=== PATIENT | female | born 1985 | race Caucasian/White ===

== ENCOUNTER 2017-08-23 14:02 | Emergency (ER) | payer SELFPAY ==
[~2017-08-23] VITALS: Ht 160 cm; Wt 70.9 kg
[~2017-08-23 14:02] MED LIST: ASPI500T10 PO; HYDR50CA PO; NAPR220C2 PO; ZIPR60CA2 PO
[2017-08-23 14:05] VITALS: BP 103/66
[2017-08-23] MEDS ORDERED: DIPHENHYDRAMINE 25 MG CAPSULE ONE (14:58)
[2017-08-23] MEDS ORDERED: DIPHENHYDRAMINE 25 MG CAPSULE PO ONE (15:00)
[2017-08-23] MEDS ORDERED: KETOROLAC 30 MG/1 ML ONE ×2 (15:42→15:45)
[2017-08-23] MEDS ORDERED: KETOROLAC 30 MG/1 ML IM ONE (16:00)
== END 2017-08-23 16:16 | disposition home or self-care (01) ==
LOC: ED 16:00
DX: L24.9 Irritant contact dermatitis, unspecified cause (principal)
CPT/HCPCS: 96372; 99283; J1885; J7512; Q0163

== ENCOUNTER 2017-10-27 11:24 | Emergency (ER) | payer SELFPAY ==
[~2017-10-27] VITALS: Ht 157.5 cm; Wt 70.0 kg
[2017-10-27] MEDS ORDERED: SODIUM CHLORIDE FLUSH 10ML SYR IVF ONE (12:00)
[2017-10-27 12:08] LABS: BASOPHILS # (AUTO) 0.03 x10^3/uL (0-0.1); BASOPHILS % (AUTO) 0 % (0-1); EOSINOPHILS # (AUTO) 0.08 x10^3/uL (0-0.4); EOSINOPHILS % (AUTO) 1 % (1-7); LYMPHOCYTES # (AUTO) 1.13 x10^3/uL (1-3.4); LYMPHOCYTES % (AUTO) 15 % (22-44); MD NO; MEAN CORPUSCULAR HEMOGLOBIN 26.7 pg (27.0-34.8); MEAN CORPUSCULAR HGB CONC 33.3 g/dL (32.4-35.8); MEAN CORPUSCULAR VOLUME 80.1 fL (80-100); MEAN PLATELET VOLUME 7.9 fL (7.4-10.4); MONOCYTES # (AUTO) 0.41 x10^3/uL (0.2-0.8); MONOCYTES % (AUTO) 6 % (2-9); NEUTROPHILS # (AUTO) 5.86 x10^3/uL (1.8-6.8); NEUTROPHILS % (AUTO) 78 % (42-75); PLATELET COUNT 342 x10^3/uL (130-400); RED BLOOD COUNT 4.15 x10^6/uL (3.82-5.3); RED CELL DISTRIBUTION WIDTH 16.1 % (9.6-15.2)
[2017-10-27 12:19] LABS: ALBUMIN 4.2 g/dL (3.4-5.0); ANION GAP 10 mmol/L (5-15); CALCIUM 8.3 mg/dL (8.5-10.1); CHLORIDE 107 mmol/L (98-107)
[2017-10-27 12:25] LABS: ALANINE AMINOTRANSFERASE 27 U/L (12-78); ALKALINE PHOSPHATASE 112 U/L (45-117); BILIRUBIN,TOTAL 0.8 mg/dL (0.2-1.0); CREATININE 1.14 mg/dL (0.55-1.02); FREE T4 (FREE THYROXINE) 1.31 ng/dL (0.76-1.46); TOTAL PROTEIN 7.3 g/dL (6.4-8.2)
[2017-10-27] MEDS ORDERED: MAALOX/HYOSCYAMINE/LIDOCAINE 45 ML BTL ONE (12:53)
[2017-10-27] MEDS ORDERED: KETOROLAC 30 MG/1 ML ONE (12:53)
[2017-10-27] MEDS ORDERED: MAALOX/HYOSCYAMINE/LIDOCAINE 45 ML BTL PO ONE (13:00)
[2017-10-27] MEDS ORDERED: KETOROLAC 30 MG/1 ML IVPush ONE (13:00)
[2017-10-27 13:26] LABS: MICROSCOPIC INDICATED
[2017-10-27 13:34] LABS: CULTURE INDICATED? YES
[2017-10-27 13:57] VITALS: BP 100/61
== END 2017-10-27 14:02 | disposition home or self-care (01) ==
LOC: ED 13:56
DX: R10.84 Generalized abdominal pain (principal); R10.13 Epigastric pain; N30.01 Acute cystitis with hematuria; R19.7 Diarrhea, unspecified; I25.2 Old myocardial infarction; F31.9 Bipolar disorder, unspecified; Z90.710 Acquired absence of both cervix and uterus; Z85.43 Personal history of malignant neoplasm of ovary
CPT/HCPCS: 36415; 74176; 80053; 81001; 83690; 84439; 84443; 84703; 85025; 87086; 93005; 96374; 99285; J1885

== ENCOUNTER 2017-12-16 16:44 | Emergency (ER) | payer OTHER ==
[~2017-12-16] VITALS: Ht 154.9 cm; Wt 76.3 kg
[2017-12-16 16:55] VITALS: BP 115/73
[2017-12-16] MEDS ORDERED: HYDROcodone/APAP 5/325 TABLET ONE (17:35)
[2017-12-16] MEDS ORDERED: HYDROcodone/APAP 5/325 TABLET PO ONE (18:00)
== END 2017-12-16 18:10 ==
LOC: ED 17:28
DX: S80.01XA Contusion of right knee, initial encounter (principal); I25.2 Old myocardial infarction; F31.9 Bipolar disorder, unspecified; F17.200 Nicotine dependence, unspecified, uncomplicated; Z88.3 Allergy status to other anti-infective agents; Z90.710 Acquired absence of both cervix and uterus; W01.0XXA Fall on same level from slipping, tripping and stumbling without subsequent striking against object, initial encounter; Y93.89 Activity, other specified; Y92.69 Other specified industrial and construction area as the place of occurrence of the external cause; Y99.0 Civilian activity done for income or pay
CPT/HCPCS: 99284

== ENCOUNTER 2018-02-07 21:28 | Emergency (ER) | payer OTHER ==
[~2018-02-07] VITALS: Ht 157.5 cm; Wt 70.0 kg
[2018-02-07 22:00] VITALS: BP 107/58
[2018-02-07] MEDS ORDERED: TRAZ150T62 PO (22:06)
[2018-02-07] MEDS ORDERED: TIZA4CAP PO (22:06)
[2018-02-07] MEDS ORDERED: OMEP40CA6 PO (22:06)
[2018-02-07] MEDS ORDERED: HYDR-3307 PO (22:06)
[2018-02-07] MEDS ORDERED: SUCR1TAB33 PO (22:06)
[2018-02-07] MEDS ORDERED: MORPHINE SULFATE 4 MG/ML, 1ML ONE (22:23)
[2018-02-07] MEDS ORDERED: PROCHLORPERAZINE 5 MG/ML, 2ML ONE (22:23)
[2018-02-07] MEDS ORDERED: PROCHLORPERAZINE 5 MG/ML, 2ML IVPush ONE (22:30)
[2018-02-07] MEDS ORDERED: MORPHINE SULFATE 4 MG/ML, 1ML IVPush ONE (22:30)
[2018-02-07 22:32] LABS: BASOPHILS # (AUTO) 0.08 x10^3/uL (0-0.1); BASOPHILS % (AUTO) 1 % (0-1); EOSINOPHILS # (AUTO) 0.11 x10^3/uL (0-0.4); EOSINOPHILS % (AUTO) 1 % (1-7); LYMPHOCYTES # (AUTO) 2.28 x10^3/uL (1-3.4); LYMPHOCYTES % (AUTO) 25 % (22-44); MD NO; MEAN CORPUSCULAR HEMOGLOBIN 25.6 pg (27.0-34.8); MEAN CORPUSCULAR HGB CONC 32.7 g/dL (32.4-35.8); MEAN CORPUSCULAR VOLUME 78.2 fL (80-100); MONOCYTES # (AUTO) 0.56 x10^3/uL (0.2-0.8); MONOCYTES % (AUTO) 6 % (2-9); NEUTROPHILS # (AUTO) 5.96 x10^3/uL (1.8-6.8); NEUTROPHILS % (AUTO) 66 % (42-75); PLATELET COUNT 315 x10^3/uL (130-400); RED BLOOD COUNT 3.65 x10^6/uL (3.82-5.3); RED CELL DISTRIBUTION WIDTH 17.6 % (9.6-15.2)
[2018-02-07 22:43] LABS: INTERNATIONAL NORMALIZED RATIO 0.92 (0.93-1.1); PROTHROMBIN TIME 9.8 Seconds (9.6-11.5)
[2018-02-07 22:45] LABS: ALANINE AMINOTRANSFERASE 22 U/L (12-78); ALBUMIN 3.6 g/dL (3.4-5.0); ANION GAP 6 mmol/L (5-15); CALCIUM 8.1 mg/dL (8.5-10.1); CHLORIDE 113 mmol/L (98-107); CREATININE 0.96 mg/dL (0.55-1.02)
[2018-02-07 22:47] LABS: ALKALINE PHOSPHATASE 92 U/L (45-117); BILIRUBIN,TOTAL 0.1 mg/dL (0.2-1.0); TOTAL PROTEIN 6.2 g/dL (6.4-8.2)
[2018-02-07] MEDS ORDERED: SODIUM CHLORIDE 0.9% 1,000ML IVBOLUS ONE (23:00)
== END 2018-02-07 23:58 | disposition home or self-care (01) ==
LOC: ED 22:46
DX: E86.0 Dehydration (principal); R10.13 Epigastric pain; F31.9 Bipolar disorder, unspecified; I25.2 Old myocardial infarction
CPT/HCPCS: 36415; 80053; 83690; 85025; 85610; 85730; 86850; 86900; 96374; 96375; 99283; J0780

== ENCOUNTER 2018-02-14 09:03 | Emergency (ER) | payer OTHER ==
[~2018-02-14 09:03] MED LIST changes: +HYDR-3307 PO; +OMEP40CA6 PO; +SUCR1TAB33 PO; +TIZA4CAP PO; +TRAZ150T62 PO
[2018-02-14 09:04] VITALS: BP 119/73
[2018-02-14] MEDS ORDERED: TOPI25CA5 PO (09:29)
== END 2018-02-14 10:03 | disposition home or self-care (01) ==
LOC: ED 09:12
DX: J20.9 Acute bronchitis, unspecified (principal); J04.0 Acute laryngitis; I25.2 Old myocardial infarction; F31.9 Bipolar disorder, unspecified
CPT/HCPCS: 99283

== ENCOUNTER 2018-04-01 17:29 | Emergency (ER) | payer OTHER ==
[~2018-04-01] VITALS: Ht 154.9 cm; Wt 75.9 kg
[~2018-04-01 17:29] MED LIST changes: +TOPI25CA5 PO
[2018-04-01 17:38] VITALS: BP 116/78
== END 2018-04-01 18:45 | disposition home or self-care (01) ==
LOC: ED 17:43
DX: S02.5XXA Fracture of tooth (traumatic), initial encounter for closed fracture (principal); F31.9 Bipolar disorder, unspecified; I25.2 Old myocardial infarction; F17.200 Nicotine dependence, unspecified, uncomplicated; Z90.710 Acquired absence of both cervix and uterus; X58.XXXA Exposure to other specified factors, initial encounter; Y93.89 Activity, other specified; Y92.89 Other specified places as the place of occurrence of the external cause; Y99.8 Other external cause status
CPT/HCPCS: 99283

== ENCOUNTER 2018-05-11 10:12 | Observation (INO) | payer OTHER ==
[~2018-05-11] VITALS: Ht 152.4 cm; Wt 77.4 kg
[2018-05-11 10:42] LABS: BASOPHILS # (AUTO) 0.04 x10^3/uL (0-0.1); BASOPHILS % (AUTO) 1 % (0-1); EOSINOPHILS # (AUTO) 0.15 x10^3/uL (0-0.4); EOSINOPHILS % (AUTO) 2 % (1-7); LYMPHOCYTES # (AUTO) 1.87 x10^3/uL (1-3.4); LYMPHOCYTES % (AUTO) 24 % (22-44); MD NO; MEAN CORPUSCULAR HGB CONC 33.1 g/dL (32.4-35.8); MEAN CORPUSCULAR VOLUME 75.5 fL (80-100); MEAN PLATELET VOLUME 8.1 fL (7.4-10.4); MONOCYTES # (AUTO) 0.42 x10^3/uL (0.2-0.8); MONOCYTES % (AUTO) 5 % (2-9); NEUTROPHILS # (AUTO) 5.23 x10^3/uL (1.8-6.8); NEUTROPHILS % (AUTO) 68 % (42-75); PLATELET COUNT 351 x10^3/uL (130-400); RED BLOOD COUNT 4.31 x10^6/uL (3.82-5.3); RED CELL DISTRIBUTION WIDTH 17.9 % (9.6-15.2)
[2018-05-11 10:52] LABS: INTERNATIONAL NORMALIZED RATIO 0.89 (0.93-1.1); PROTHROMBIN TIME 9.4 Seconds (9.6-11.5)
[2018-05-11 10:55] LABS: ALANINE AMINOTRANSFERASE 42 U/L (12-78); ALBUMIN 4.2 g/dL (3.4-5.0); ANION GAP 4 mmol/L (5-15); CALCIUM 8.9 mg/dL (8.5-10.1); CHLORIDE 110 mmol/L (98-107)
--- NOTE | 2018-05-11 10:56 | NUR ---
CUMULATIVE NOTE: 1025 PT TO T4 FROM TRIAGE. PT C/O R SIDED WEAKNESS AND DIFFICULTY SPEAKING. PT NOTICED SYMPTOMS BEGINNING AT 0700 WHEN SHE WOKE UP THIS MORNING. PT AUBREY PARDO. ED MD AT BEDSIDE FOR ASSESSMENT. PT'S FACIAL PIERCINGS REMOVED BY PT USING HER RIGHT HAND. PLACED IN BAG AND GIVEN TO PT'S FIANCE. PT'S FIANCE REPORTS RECENT CHANGE IN PT'S MEDICATION. INCREASED DOSE OF SEROQUEL AND CHANGE TO TRAZADONE. [address] VIA GURNEY, CONTINUOUS CARDIAC MONITORING IN PLACE. PT ABLE TO TRANSFER FROM GURNEY TO CT TABLE. [address] TO ED ROOM 30. BEDSIDE REPORT GIVEN TO FRANCINE CORTES. CONTINOUS SPO2 AND CARDIAC MONITORING IN PLACE. VSRay. EDVIN AT BEDSIDE.
[2018-05-11 10:57] LABS: ALKALINE PHOSPHATASE 139 U/L (45-117); BILIRUBIN,TOTAL 0.2 mg/dL (0.2-1.0); TOTAL PROTEIN 7.5 g/dL (6.4-8.2)
[2018-05-11] MEDS ORDERED: OMNIPAQUE 350 MG/ML, 100ML BOTTLE ONE (10:57)
[2018-05-11 11:00] LABS: ACETAMINOPHEN < 2 mcg/mL (10-30); SALICYLATE LEVEL < 1.7 mg/dL (2.8-20.0)
[2018-05-11] MEDS ORDERED: SODIUM CHLORIDE FLUSH 10ML SYR IVF ONE (11:00)
[2018-05-11] MEDS ORDERED: QUET100T PO (11:05)
[2018-05-11] MEDS ORDERED: BUSP15TA PO (11:05)
[2018-05-11] MEDS ORDERED: LAMO25TB7 PO (11:05)
--- NOTE | 2018-05-11 11:18 | NUR ---
report from sushant Aguillon. connected to monitor. vss. pt resting in room wtih fiance at bedside. med rec complete. no other needs at this time. call light within reach.
--- NOTE | 2018-05-11 11:35 | NUR ---
Dr. Amezcua to bedside.
[2018-05-11] MEDS ORDERED: POLYETHYLENE GLYCOL 17 GM PACKET PO PRN (13:00)
[2018-05-11] MEDS ORDERED: ONDANSETRON 2MG/ML, 2ML IVPush PRN (13:00)
[2018-05-11] MEDS ORDERED: ONDANSETRON ODT 4 MG PO PRN (13:00)
[2018-05-11] MEDS ORDERED: LABETALOL 5MG/ML, 20ML IVPush PRN (13:00)
[2018-05-11 13:29] LABS: HEMOGLOBIN A1C 5.2 % (4.2-6.3)
[2018-05-11 13:30] LABS: CHOL/HDL RATIO 2.2; FREE T4 (FREE THYROXINE) 0.95 ng/dL (0.76-1.46); LDL/HDL RATIO 0.9 (0.5-3.0); THYROID STIMULATING HORMONE 3.88 mIU/L (0.358-3.740)
[2018-05-11] MEDS ORDERED: SODIUM CHLORIDE 0.9% 1,000 ML IV SCH (13:30)
[2018-05-11 13:38] VITALS: BP 94/59
[2018-05-11] MEDS: ASPIRIN 81 MG TABLET EC PO SCH (15:15)
[2018-05-11] MEDS: CLOPIDOGREL 75 MG TABLET PO SCH (15:15)
[2018-05-11 17:22] LABS: AMPHETAMINE SCREEN, URINE Negative (Negative); BARBITURATE SCREEN, URINE Negative (Negative); BENZODIAZEPINE SCREEN, URINE Negative (Negative); CANNABINOID SCREEN, URINE Negative (Negative); COCAINE SCREEN, URINE Negative (Negative); METHADONE SCREEN, URINE Negative (Negative); OPIATE SCREEN, URINE Positive (Negative)
[2018-05-11] MEDS: D5%-0.9% NACL 1,000 ML IV SCH (18:02)
[2018-05-11 18:44] VITALS: BP 111/68
[2018-05-11] MEDS ORDERED: ATORVASTATIN 20 MG TABLET PO SCH (21:00)
[2018-05-11] MEDS ORDERED: GLUCAGON 1 MG IM PRN (23:00)
[2018-05-11] MEDS ORDERED: DEXTROSE 4 GM TAB.CHEW PO PRN (23:00)
[2018-05-11] MEDS ORDERED: DEXTROSE 50%, 50ML SYRINGE IVPush PRN (23:00)
[2018-05-12 00:36] VITALS: BP 107/62
[2018-05-12] MEDS: D5%-0.9% NACL 1,000 ML IV SCH ×2 (02:22→10:00)
[2018-05-12 05:52] LABS: BASOPHILS # (AUTO) 0.06 x10^3/uL (0-0.1); BASOPHILS % (AUTO) 1 % (0-1); EOSINOPHILS # (AUTO) 0.16 x10^3/uL (0-0.4); EOSINOPHILS % (AUTO) 3 % (1-7); LYMPHOCYTES # (AUTO) 1.95 x10^3/uL (1-3.4); LYMPHOCYTES % (AUTO) 34 % (22-44); MD NO; MEAN CORPUSCULAR HEMOGLOBIN 24.9 pg (27.0-34.8); MEAN CORPUSCULAR HGB CONC 32.7 g/dL (32.4-35.8); MEAN CORPUSCULAR VOLUME 76.2 fL (80-100); MEAN PLATELET VOLUME 8.1 fL (7.4-10.4); MONOCYTES # (AUTO) 0.42 x10^3/uL (0.2-0.8); MONOCYTES % (AUTO) 7 % (2-9); NEUTROPHILS % (AUTO) 54 % (42-75); PLATELET COUNT 289 x10^3/uL (130-400); RED BLOOD COUNT 3.73 x10^6/uL (3.82-5.3); RED CELL DISTRIBUTION WIDTH 17.9 % (9.6-15.2)
[2018-05-12 06:02] LABS: ALBUMIN 2.9 g/dL (3.4-5.0); ANION GAP 5 mmol/L (5-15); CALCIUM 8.1 mg/dL (8.5-10.1); CHLORIDE 113 mmol/L (98-107)
[2018-05-12] MEDS: ASPIRIN 81 MG TABLET EC PO SCH (06:02)
[2018-05-12 06:14] LABS: ALANINE AMINOTRANSFERASE 27 U/L (12-78); ALKALINE PHOSPHATASE 105 U/L (45-117); BILIRUBIN,TOTAL 0.2 mg/dL (0.2-1.0); CREATININE 0.89 mg/dL (0.55-1.02); TOTAL PROTEIN 5.4 g/dL (6.4-8.2)
[2018-05-12 06:58] VITALS: BP 90/59
[2018-05-12] MEDS ORDERED: IRON SUCROSE COMPLEX 100MG/5ML IV ONE (07:00)
[2018-05-12] MEDS: CLOPIDOGREL 75 MG TABLET PO SCH (08:39)
[2018-05-12] MEDS ORDERED: SENNA/DOCUSATE TABLET PO SCH (09:00)
[2018-05-12] MEDS ORDERED: SODIUM CHLORIDE FLUSH 10ML SYR IVF SCH (09:00)
[2018-05-12] MEDS ORDERED: ASPI81TA45 PO (12:20)
[2018-05-12] MEDS ORDERED: ATOR20TA37 PO (12:20)
--- NOTE | 2018-05-12 15:54 | NUR ---
REC REG/THIN; swallow precautions sheet at bedside Addendum: 05/12/18 at [address] Amended: Links added.
== END 2018-05-12 12:45 | disposition home or self-care (01) ==
LOC: ED 12:15 → EDIP 12:47 → 4WST 13:31
PROVIDERS: ADMIT Internal Medicine; ATTEND Internal Medicine
DX: I63.9 Cerebral infarction, unspecified (principal); R07.9 Chest pain, unspecified; R42 Dizziness and giddiness; E88.2 Lipomatosis, not elsewhere classified; F17.200 Nicotine dependence, unspecified, uncomplicated; F43.10 Post-traumatic stress disorder, unspecified; Z79.899 Other long term (current) drug therapy; Z82.3 Family history of stroke
CPT/HCPCS: 36415; 70450; 70496; 70498; 70551; 80053; 80061; 80307; 80329; 82728; 82962; 83036; 83540; 83550; 83735; 84100; 84439; 84443; 85025; 85610; 85730; 92526; 92610; 93005; 93306; 96361; 96374; 97162; 97165; 99284; G0378; J1756; J7030; J7042; Q9967; G0480

== ENCOUNTER 2018-06-27 09:41 | Emergency (ER) | payer OTHER ==
[~2018-06-27] VITALS: Ht 157.5 cm; Wt 80.2 kg
[~2018-06-27 09:41] MED LIST changes: +ASPI81TA45 PO; +ATOR20TA37 PO; +BUSP15TA PO; +LAMO25TB7 PO; +QUET100T PO
[2018-06-27 09:51] VITALS: BP 116/81
--- NOTE | 2018-06-27 10:24 | NUR ---
PT TO XR.
--- NOTE | 2018-06-27 10:34 | NUR ---
pt back from xr
[2018-06-27 10:36] LABS: MEAN CORPUSCULAR HEMOGLOBIN 25.3 pg (27.0-34.8); MEAN CORPUSCULAR HGB CONC 33.2 g/dL (32.4-35.8); MEAN CORPUSCULAR VOLUME 76.1 fL (80-100); MEAN PLATELET VOLUME 7.4 fL (7.4-10.4); PLATELET COUNT 416 x10^3/uL (130-400); RED BLOOD COUNT 4.07 x10^6/uL (3.82-5.3)
--- NOTE | 2018-06-27 10:44 | NUR ---
PT TO ED FOR NUMBNESS AND TINGLING IN BILATERAL ARMS, PROGRESSIVELY GETTING WORSE. 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 EDMD ASSESSMENT COMPLETE AND ORDERS RECEIVED. LABS DRAWN AND XR COMPLETE. AWAITING RESULTS.
[2018-06-27 10:46] LABS: ALBUMIN 3.5 g/dL (3.4-5.0); ANION GAP 6 mmol/L (5-15); CALCIUM 8.2 mg/dL (8.5-10.1); CHLORIDE 113 mmol/L (98-107)
[2018-06-27 10:49] LABS: ALANINE AMINOTRANSFERASE 39 U/L (12-78); ALKALINE PHOSPHATASE 122 U/L (45-117); BILIRUBIN,TOTAL 0.2 mg/dL (0.2-1.0); CREATININE 0.74 mg/dL (0.55-1.02); TOTAL PROTEIN 6.8 g/dL (6.4-8.2)
[2018-06-27 10:57] LABS: ANISOCYTOSIS 1+; BASOPHILS # (AUTO) 0.07 x10^3/uL (0-0.1); BASOPHILS % (AUTO) 1 % (0-1); EOSINOPHILS # (AUTO) 0.13 x10^3/uL (0-0.4); EOSINOPHILS % (AUTO) 2 % (1-7); HYPOCHROMIA 1+; LYMPHOCYTES # (AUTO) 1.85 x10^3/uL (1-3.4); LYMPHOCYTES % (AUTO) 29 % (22-44); MD MORPH REVIEW ONLY; MICROCYTOSIS 1+; MONOCYTES % (AUTO) 6 % (2-9); NEUTROPHILS # (AUTO) 3.89 x10^3/uL (1.8-6.8); NEUTROPHILS % (AUTO) 61 % (42-75)
[2018-06-27 10:59] LABS: POLYCHROMASIA 1+
[2018-06-27 11:00] LABS: <PLATELET ESTIMATE> INCREASED; <PLT MORPHOLOGY> NORMAL PLT MORPH
--- NOTE | 2018-06-27 11:07 | NUR ---
BEDSIDE REPORT FROM AZEEM RN, PT RESTING IN [facility]. CALL LIGHT WITHIN REACH.
[2018-06-29 11:58] LABS: ANA SCREEN NEGATIVE (Negative)
== END 2018-06-27 11:49 | disposition home or self-care (01) ==
LOC: ED 10:26
DX: G56.02 Carpal tunnel syndrome, left upper limb (principal); I25.2 Old myocardial infarction; F31.9 Bipolar disorder, unspecified; F17.200 Nicotine dependence, unspecified, uncomplicated; Z90.49 Acquired absence of other specified parts of digestive tract; Z90.710 Acquired absence of both cervix and uterus
CPT/HCPCS: 36415; 72050; 80053; 85025; 85651; 86038; 86063; 86430; 99284

== ENCOUNTER 2018-11-02 10:00 | Emergency (ER) | payer OTHER ==
[~2018-11-02] VITALS: Ht 157.5 cm; Wt 78.8 kg
[2018-11-02 13:45] VITALS: BP 108/68
== END 2018-11-02 14:42 | disposition home or self-care (01) ==
LOC: ED 14:36
DX: M54.6 Pain in thoracic spine (principal); M54.5 Low back pain; I25.2 Old myocardial infarction; F31.9 Bipolar disorder, unspecified; F17.200 Nicotine dependence, unspecified, uncomplicated; Z90.89 Acquired absence of other organs; Z90.710 Acquired absence of both cervix and uterus; Z86.73 Personal history of transient ischemic attack (TIA), and cerebral infarction without residual deficits
CPT/HCPCS: 36415; 72141; 72146; 72148; 80053; 81001; 84703; 85025; 87077; 87086; 87186; 99284

== ENCOUNTER 2019-04-01 21:34 | Emergency (ER) | payer MEDICAID ==
[~2019-04-01] VITALS: Ht 152.4 cm; Wt 66.4 kg
[~2019-04-01 21:34] MED LIST changes: -HYDR-3307 PO; +HYDR-36 PO; +OMEP40CA42 PO; -OMEP40CA6 PO
[2019-04-01] MEDS ORDERED: FAMOTIDINE 20 MG/2 ML IVPush ONE (22:00)
[2019-04-01 22:30] LABS: BASOPHILS # (AUTO) 0.13 x10^3/uL (0-0.1); BASOPHILS % (AUTO) 2 % (0-1); EOSINOPHILS # (AUTO) 0.17 x10^3/uL (0-0.4); EOSINOPHILS % (AUTO) 3 % (1-7); LYMPHOCYTES # (AUTO) 2.55 x10^3/uL (1-3.4); LYMPHOCYTES % (AUTO) 38 % (22-44); MD NO; MEAN CORPUSCULAR HEMOGLOBIN 25.6 pg (27.0-34.8); MEAN CORPUSCULAR HGB CONC 32.8 g/dL (32.4-35.8); MEAN CORPUSCULAR VOLUME 78.2 fL (80-100); MEAN PLATELET VOLUME 8.4 fL (7.4-10.4); MONOCYTES # (AUTO) 0.39 x10^3/uL (0.2-0.8); MONOCYTES % (AUTO) 6 % (2-9); NEUTROPHILS # (AUTO) 3.47 x10^3/uL (1.8-6.8); NEUTROPHILS % (AUTO) 52 % (42-75); PLATELET COUNT 306 x10^3/uL (130-400); RED BLOOD COUNT 3.88 x10^6/uL (3.82-5.3); RED CELL DISTRIBUTION WIDTH 17.1 % (9.6-15.2)
[2019-04-01] MEDS ORDERED: FAMOTIDINE 20 MG/2 ML ONE (22:32)
[2019-04-01 22:41] LABS: ALANINE AMINOTRANSFERASE 31 U/L (12-78); ALBUMIN 3.4 g/dL (3.4-5.0); ANION GAP 7 mmol/L (5-15); CALCIUM 8.6 mg/dL (8.5-10.1); CHLORIDE 107 mmol/L (98-107); CREATININE 0.94 mg/dL (0.55-1.02)
[2019-04-01 22:52] LABS: ALKALINE PHOSPHATASE 117 U/L (45-117); BILIRUBIN,TOTAL 0.2 mg/dL (0.2-1.0); T4 (THYROXINE) 7.7 mcg/dL (4.8-13.9); TOTAL PROTEIN 6.3 g/dL (6.4-8.2)
[2019-04-01] MEDS ORDERED: OMNIPAQUE 350 MG/ML, 100ML BOTTLE ONE (23:52)
[2019-04-02] MEDS ORDERED: IBUPROFEN 600 MG TABLET ONE (00:19)
[2019-04-02] MEDS ORDERED: ACETAMINOPHEN 500 MG TABLET ONE (00:20)
[2019-04-02] MEDS ORDERED: LIDOCAINE-MPF 1%, 5ML ONE (00:20)
[2019-04-02] MEDS ORDERED: LIDOCAINE 1%, 10ML INFIL ONE (00:30)
[2019-04-02] MEDS ORDERED: IBUPROFEN 200 MG TABLET PO ONE (00:30)
[2019-04-02] MEDS ORDERED: ACETAMINOPHEN 500 MG TABLET PO ONE (00:30)
[2019-04-02 01:16] VITALS: BP 122/78
== END 2019-04-02 01:19 | disposition home or self-care (01) ==
LOC: ED 22:57
DX: K92.1 Melena (principal); R55 Syncope and collapse; K29.01 Acute gastritis with bleeding; D50.0 Iron deficiency anemia secondary to blood loss (chronic); L03.011 Cellulitis of right finger; F17.200 Nicotine dependence, unspecified, uncomplicated; Z90.89 Acquired absence of other organs; Z90.710 Acquired absence of both cervix and uterus; Z86.73 Personal history of transient ischemic attack (TIA), and cerebral infarction without residual deficits
CPT/HCPCS: 10060; 36415; 80053; 83690; 84436; 84443; 85025; 86850; 86900; 93005; 96374; 99284; Q9967; J3490